=== PATIENT | male | born 1975 | race Caucasian/White ===

== ENCOUNTER 2023-05-15 14:34 | Emergency (ER) | payer OTHER, SELFPAY ==
--- NOTE | 2023-05-15 14:42 | ED.SKABFB ---
HPI - Skin/Abscess/Foreign Bdy General Chief complaint: Wound/Laceration Stated complaint: Laceratin to Finger Source: patient, family and RN notes reviewed History of Present Illness HPI narrative: 47 yo M presents to urgent care with at side. Pt states he cut his finger on a crystal flat grinder [employer]IMING POWDER [employer]ENDER. Pt denies any other injury. Denies any numbness or tingling. Pt is unsure on his last Tdap. Related Data Home Medications Medication Instructions Recorded Confirmed cyclobenzaprine 10 mg tablet See Rx Instructions .Route .COMPLEX 05/15/23 05/15/23 ibuprofen 600 mg tablet See Rx Instructions .Route .COMPLEX 05/15/23 05/15/23 Allergies Allergy/AdvReac Type Severity Reaction Status Date / Time No Known Allergies Allergy Verified 05/15/23 15:11 Review of Systems Review of Systems: CONSTITUTIONAL: Denies fever, chills, or sweats. EYES: Denies visual changes, redness, or discharge. ENT: Denies otalgia and sore throat CARDIOVASCULAR: Denies chest pain, palpitations, or edema. RESPIRATORY: Denies cough or dyspnea. GASTROINTESTINAL: Denies abdominal pain, nausea, vomiting, or diarrhea. GENITOURINARY: Denies dysuria or hematuria. SKIN:laceration to left index finger MUSCULOSKELETAL: Denies back pain, joint pain, or myalgia. NEUROLOGIC: Denies headache, numbness, or weakness. Pertinent positives per HPI. PMFSH Comments At the time of my signature, I reviewed and agree with the nursing past medical, surgical, social, and family history. There is no relevant family history pertinent to the patient complaint. Exam Narrative: GENERAL: This is a well-nourished, well-developed patient, in no apparent distress. HEAD: normocephalic, atraumatic. EYES: Sclera clear/white. Vision is grossly intact. EARS: External ears normal, auditory canals clear and without drainage. Hearing grossly intact. NOSE: External nose normal with no obvious nasal discharge, nares without redness, no rhinorrhea. THROAT: Mucous membranes moist, posterior pharynx clear. NECK: Neck supple, non-tender without lymphadenopathy, masses or thyromegaly. CARDIOVASCULAR: Regular rate RESPIRATORY: No respiratory distress SKIN: 3 cm laceration to left index finger, dorsal side, linear. bleeding controlled NEURO: awake, alert, and oriented to person, place and time. There were no obvious focal neurologic abnormalities. EXTREMITIES: No clubbing, cyanosis, or edema. No joint tenderness, effusion, or edema noted. Full ROM noted in affected finger. Good strength with flexion and extension. BACK: Nontender without deformity or crepitus. No flank tenderness. Course Course Level of Care: Express Care Visit Vital Signs Vital signs: Vital Signs Temperature 98.1 F 05/15/23 14:43 Pulse Rate 59 L 05/15/23 14:43 Respiratory Rate 18 05/15/23 14:43 Blood Pressure 142/90 H 05/15/23 14:43 Pulse Oximetry 99 05/15/23 14:43 Oxygen Delivery Room Air 05/15/23 14:43 Temperature 98.1 F 05/15/23 14:43 Pulse Rate 59 L 05/15/23 14:43 Respiratory Rate 18 05/15/23 14:43 Blood Pressure 142/90 H 05/15/23 14:43 Pulse Oximetry 99 05/15/23 14:43 Oxygen Delivery Room Air 05/15/23 14:43 Reviewed Procedures Laceration Laceration 1: Date: 05/15/23 Time: 15:50 Site: upper extremity (index finger) Side (If applicable): left Size (cm): 3 Description: linear and contaminated Depth: simple, single layer Local Anesthetic: lidocaine 1% Amount of anesthesia used (mL): 2 Pre-repair: wound explored, irrigated, irrigated extensively and other (gravel or carbon specks removed prior to suturing) ====== Skin Level ====== Skin layer closed with: nylon Size (cm): 4-0 Number of sutures: 6 Technique: simple, interrupted ====== Subcutaneous Layer ====== ====== Muscle Layer ====== ====== Tendon Layer ====== Dressing: LACERATION REPAIR: The proced
[2023-05-15 14:43] VITALS: BP 142/90; PULSE 59; RESP 18; TEMP 36.7; O2SAT 99
[2023-05-15] MEDS: TETANUS,DIPHTHERIA,AC PERTUSSIS ADULT (0.5 ML) BOOSTRIX IM (15:14)
== END 2023-05-15 16:00 | disposition home or self-care (01) ==
PROVIDERS: Emergency Provider Nurse Practitioner Family; PCP Internal Medicine
DX: S61.211A Laceration without foreign body of left index finger without damage to nail, initial encounter (principal); Z23 Encounter for immunization; W29.8XXA Contact with other powered hand tools and household machinery, initial encounter
CPT/HCPCS: 12042; 90471; 90715; 99213; G0463